=== PATIENT | female | born 1960 | race Caucasian/White ===

== ENCOUNTER → 2020-08-10 | Outpatient (CLI) | payer BC | END | disposition home or self-care (01) | LOC: LABWHC1 10:42 | PROVIDERS: ATTEND Family Medicine | DX: Z20.828 Contact with and (suspected) exposure to other viral communicable diseases (principal) | CPT/HCPCS: U0003; C9803 ==

== ENCOUNTER → 2023-11-17 | Outpatient (CLI) | payer BC ==
--- NOTE | 2023-11-21 08:39 | MM ---
Reason for Exam: Screening (asymptomatic). Last mammogram was performed 4 year(s) and 7 month(s) ago. Patient History: Menarche at age 13. First Full-Term at age 20. Hysterectomy at age 31. Postmenopausal. Excisional Biopsy on the Left side. Risk Values: Bebe 5 year model risk: 1.3%. NCI Lifetime model risk: 6.1%. Prior Study Comparison: 06/17/2014 Bilateral Screening Mammogram, [facility]. 06/24/2014 Left Diagnostic Mammogram, [facility]. 04/06/2016 Bilateral Screening Mammogram, [facility]. 04/26/2019 Bilateral Screening Mammogram, [facility]. Tissue Density: There are scattered fibroglandular densities. Findings: Analyzed By CAD. Unchanged bilateral areas of asymmetric density. There is no suspicious group of microcalcifications or new suspicious mass in either breast. Overall Assessment: Benign, BI-RAD 2 Management: Screening Mammogram of both breasts in 1 year. . Patient should continue monthly self-breast exams. A clinical breast exam by your physician is recommended on an annual basis. This exam should not preclude additional follow-up of suspicious palpable abnormalities. Note on Bebe scores and lifetime risk: 1. A Bebe score greater than 3% is considered moderate risk. If this is the case, consider specialist referral to assess eligibility for a risk reducing agent. 2. If overall lifetime risk for the development of breast cancer is 20% or higher, the patient may qualify for future screening with alternating mammogram and breast MRI. Electronically signed and approved by: Kasi Palacios M.D. Radiologist
== END | disposition home or self-care (01) ==
LOC: RADMAMWWP 10:04
PROVIDERS: ATTEND Family Medicine
DX: Z12.31 Encounter for screening mammogram for malignant neoplasm of breast (principal); Z78.0 Asymptomatic menopausal state
CPT/HCPCS: 77067

== ENCOUNTER → 2024-10-04 | Outpatient (CLI) | payer BC ==
--- NOTE | 2024-10-07 05:32 | MR ---
EXAMINATION TYPE: MR knee RT wo con DATE OF EXAM: 10/04/2024 COMPARISON: NONE HISTORY: Right knee pain, locking, and swelling. Abnormal xray TECHNIQUE: Multiplanar, multisequence images of the knee is performed without IV contrast. FINDINGS: MEDIAL MENISCUS: Horizontal and oblique signal posterior horn does not extend to articular surface. LATERAL MENISCUS: Anterior and posterior horns are intact without tear. CRUCIATE LIGAMENTS: The anterior and posterior cruciate ligaments are intact and unremarkable. COLLATERAL LIGAMENTS: The medial collateral ligament and lateral collateral ligament complex are inta ct and unremarkable. EXTENSOR MECHANISM: Visualized quadriceps and patellar tendons are intact. EFFUSION: No significant suprapatellar joint effusion. POPLITEAL CYST: No popliteal/neil cyst. TRICOMPARTMENT SPACES: Mild tricompartment joint space loss. No significant spurring. CARTILAGE: Tricompartment articular cartilage is preserved BONE MARROW SIGNAL: The fibular head is medullary based lesion of T1 hypointensity T2 hyperintensity measuring 3.1 cm craniocaudal dimension by 2.0 cm AP diameter by 1.8 cm transversely axial image 11 a nd coronal image 23. Lesion appears to be multi septated cystic lesion. No cortical breakthrough or a djacent soft tissue mass is seen. OTHER: No additional significant abnormality is appreciated. IMPRESSION: 1. 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 2. Suspect intrasubstance tear posterior horn of medial meniscus. No full-thickness meniscal or ligam entous tear is seen. 3. Approximately 3.1 cm intramedullary lesion in the fibular head favors a multiseptated cystic lesio n, nonaggressive etiology is favored, direct correlation with plain films is advised. Considering ane urysmal bone cyst among the differential. Advise orthopedic oncologic consultation especially if ther e is localized pain. [facility], , 10/07/2024 5:30 AM
== END | disposition home or self-care (01) ==
LOC: RADMRIMAIN 18:08
PROVIDERS: ATTEND Family Medicine
DX: M17.11 Unilateral primary osteoarthritis, right knee (principal); R93.6 Abnormal findings on diagnostic imaging of limbs; M25.861 Other specified joint disorders, right knee